=== PATIENT | male | born 1945 | race Caucasian/White ===

== ENCOUNTER → 2016-10-28 | Outpatient (CLI) | payer MEDICARE, MEDICAID ==
[~2016-10-28] MED LIST: ASP81TEC; CALC625T; CLIN-62; CLOT15CR4; CLOT15CR6; DCS100C; ECON30CR9; HYDR-34 PO; LANS30CA; LTRS15C; MAGN-47; MELO-195; OLAN20TA3; PEG250PW; SCR1T1; SIMV40TA2; SRTR100T; TOLTA4; TR1O15; TRAM50TA2
--- NOTE | 2016-10-28 16:20 | Diagnostic Imaging Report ---
EXAM: Two views of the right clavicle. INDICATION: Right clavicle area pain after injury. FINDINGS: No fracture or dislocation is seen. Degenerative changes at the acromioclavicular joint noted. IMPRESSION: No fracture is seen. Dictated by: Dictated on workstation # [id number]
--- NOTE | 2016-10-28 16:22 | Diagnostic Imaging Report ---
EXAM: 2 views of the right scapula. INDICATION: Right shoulder pain after falling out of bed. FINDINGS: No fracture, dislocation or radiopaque foreign body is a identified. IMPRESSION: Unremarkable exam. Evaluation of the scapula by radiographs can be somewhat limited. If there is high index of suspicion, evaluation with CT scan is recommended. Dictated by: Dictated on workstation # [id number]
--- NOTE | 2016-10-28 18:50 | Diagnostic Imaging Report ---
EXAMINATION: Three views of the right shoulder. INDICATION: Right shoulder pain after injury. FINDINGS: There is near wdva-is-puia appearance between the humerus and the undersurface of the acromion suggestive of high-grade chronic rotator cuff tear with superior subluxation of the humeral head relative to the glenoid. There is also mild degenerative changes seen at the glenohumeral and the acromioclavicular joints. No fracture or dislocation noted. IMPRESSION: Degenerative changes and evidence of chronic full-thickness tear of the rotator cuff. Dictated by: Dictated on workstation # [id number]
--- NOTE | 2016-10-28 19:16 | Diagnostic Imaging Report ---
EXAMINATION: Two views of the right humerus. INDICATION: Right arm pain after fall. FINDINGS: No fracture is seen. The proximal and distal joints appear grossly unremarkable with degenerative changes seen at the right shoulder. IMPRESSION: No acute process. Dictated by: Dictated on workstation # [id number]
== END ==
LOC: RAD 09:49
PROVIDERS: ATTEND Family Medicine
DX: M19.011 Primary osteoarthritis, right shoulder (principal); S59.911A Unspecified injury of right forearm, initial encounter; S29.9XXA Unspecified injury of thorax, initial encounter; M75.101 Unspecified rotator cuff tear or rupture of right shoulder, not specified as traumatic; W19.XXXA Unspecified fall, initial encounter; Y99.8 Other external cause status
CPT/HCPCS: 73000; 73010; 73030; 73060

== ENCOUNTER 2017-07-05 13:49 | Inpatient (IN) | payer MEDICARE, MEDICAID ==
[2017-07-05] VITALS (10 sets, daily range): BP systolic 93–135; BP diastolic 58–94
[~2017-07-05] VITALS: Ht 175.3 cm; Wt 81.6 kg
[2017-07-05] MEDS ORDERED: ONDANSETRON 4 MG/2 ML (SDV) Z0FRAN IVP PRN (14:00)
[2017-07-05] MEDS ORDERED: fentaNYL INJECTION 100 MCG/2 ML AMP IVP PRN (14:00)
[2017-07-05] MEDS ORDERED: ALPRAZolam 0.25 MG (XANAX) TAB PO PRN (14:00)
[2017-07-05] MEDS ORDERED: PIPERACILLIN SODIUM/TAZOBACTAM 4.5 GM in NS (IVPB) 100 ML IV SCH (14:00)
[2017-07-05] MEDS ORDERED: ACETAMINOPHEN 500 MG TAB (TYLENOL) PO PRN (14:00)
[2017-07-05] MEDS ORDERED: PIPERACILLIN/TAZO 4.5 GM VIAL (ZOSYN) IV ONE (16:41)
[2017-07-05] MEDS ORDERED: NS (IVPB) 100 ML ONE (16:43)
[2017-07-05] MEDS: NS IV 1000 ML 1,000 ML IV SCH (17:06)
[2017-07-05] MEDS ORDERED: RT-ALBUTEROL/IPRATROPIUM 3 ML (DUONEB) VIAL INH PRN (17:15)
[2017-07-05] MEDS ORDERED: CATHETER FLUSH 10 ML SYR IV PRN (17:45)
[2017-07-05] MEDS: PIPERACILLIN SODIUM/TAZOBACTAM 4.5 GM in NS (IVPB) 100 ML IV SCH (21:22)
--- NOTE | 2017-07-05 22:15 | CONSULTATION REPORT ---
DATE OF SERVICE: ADMITTING PHYSICIAN: Dr. London. ATTENDING PRIMARY CARE PHYSICIAN: Dr. Dottie Ascencio. HISTORY OF PRESENT ILLNESS: The patient is a 72-year-old male with a history of mild developmental mental delay. He is currently a resident of [facility]. He was brought to [facility] Emergency Department due to abdominal distention and pain. He was found to have an elevated white count as well as a hemoglobin and hematocrit most likely secondary to significant dehydration. He also had elevated BUN of 30 and creatinine of 2.55 consistent with dehydration as well and a lactic acid of 22.1. He reports abdominal distention as well as nausea and vomiting, however, since being admitted. He has a history of small-bowel obstruction and underwent exploratory laparotomy in 1999. Again since being admitted and started on IV fluids, he has had a bowel movement and passing of flatus with a decrease of abdominal distention. CT scan was reviewed from the previous institution, which did show dilated loops of small bowel consistent with; however, there was stool and gas within the colon consistent with more of a partial small-bowel obstruction. PAST MEDICAL HISTORY: CHF, history of small-bowel obstruction and ileus, hypercholesterolemia, mild developmental delay. PAST SURGICAL HISTORY: Exploratory laparotomy in 1999, repair of the left hallux deformity. ALLERGIES: No known drug allergies. MEDICATIONS: Aspirin 81 mg daily, lorazepam 0.5 mg daily, valproic acid 1250 mg daily, tamsulosin 0.4 mg daily, simvastatin 20 mg daily, olanzapine 20 mg daily, Meloxicam 7.5 mg b.i.d. SOCIAL HISTORY: Positive smoke 15 pack years, 3 beers daily. FAMILY HISTORY: Noncontributory. REVIEW OF SYSTEMS: Well-nourished male, currently in no acute distress. He is not experiencing any shortness of breath or difficulty breathing. No chest pain, palpitations, diaphoresis. No nausea, vomiting; however, came in with abdominal distention and since being placed on IV fluids and NG tube decompression, has had significantly less abdominal distention as well as bowel movements and passing of flatus. No red blood per rectum, no dark tarry stools. No fever, chills, no recent inadvertent weight loss. All other review of systems negative. PHYSICAL EXAMINATION: CHEST: Clear. Good breath sounds bilaterally. HEART: Regular, no murmurs. EXTREMITIES: No lower extremity edema. Negative Homans sign. HEENT: No scleral icterus. NECK: No cervical lymphadenopathy. ABDOMEN: Soft, nontender, nondistended. There are no hernias palpable. SKIN: Warm, dry. ASSESSMENT AND PLAN: A 72-year-old male with partial small-bowel obstruction as well as severe dehydration and renal insufficiency secondary to his dehydration. He is currently on fluid hydration as well as NG tube decompression. He has had a bowel function since incorporation of therapy and we will continue with conservative management and if he continues to have bowel function, we will remove the NG tube and start a clear liquid diet and advance as tolerated. Job ID: [id number] DocumentID: [id number] Dictated Date: 07/05/2017 21:49:17 Program Project Manager Date: 07/05/2017 22:15:00 Dictated By: SHAWNA NICHOLE MD
[2017-07-06] VITALS (16 sets, daily range): BP systolic 112–162; BP diastolic 64–95
[2017-07-06] MEDS: NS IV 1000 ML 1,000 ML IV SCH ×5 (00:23→21:19)
[2017-07-06 04:36] LABS: BASOPHILS % (AUTO) 0 % (0-10); EOSINOPHILS % (AUTO) 0 % (0-10); HEMATOCRIT 44 % (40-54); HEMOGLOBIN 15.4 G/DL (13.3-17.7); LYMPHOCYTES % (AUTO) 16 % (12-44); MEAN CORPUSCULAR HEMOGLOBIN 30 PG (25-34); MEAN CORPUSCULAR HGB CONC 35 G/DL (32-36); MEAN CORPUSCULAR VOLUME 88 FL (80-99); MEAN PLATELET VOLUME 11.9 FL (7.4-10.4); MONOCYTES # (AUTO) 1.1 X 10^3 (0.0-1.0); NEUTROPHILS % (AUTO) 66 % (42-75); PLATELET COUNT 156 10^3/uL (130-400); RED BLOOD COUNT 5.06 10^6/uL (4.35-5.85); RED CELL DISTRIBUTION WIDTH 14.6 % (10.0-14.5); WHITE BLOOD COUNT 6.1 10^3/uL (4.3-11.0)
[2017-07-06 04:37] LABS: MONOCYTES % (AUTO) 17 % (0-12)
[2017-07-06 05:01] LABS: ALANINE AMINOTRANSFERASE 22 U/L (0-55); ALKALINE PHOSPHATASE 42 U/L (40-136); BILIRUBIN,TOTAL 0.7 MG/DL (0.1-1.0); BUN/CREATININE RATIO 35; CALCIUM 8.4 MG/DL (8.5-10.1); CARBON DIOXIDE 27 MMOL/L (21-32); CHLORIDE 100 MMOL/L (98-107); CREATININE SERUM 0.94 MG/DL (0.60-1.30); GFR ESTIMATED > 60; GLUCOSE 87 MG/DL (70-105); MAGNESIUM 2.4 MG/DL (1.8-2.4); PHOSPHORUS 3.4 MG/DL (2.3-4.7); SODIUM 137 MMOL/L (135-145); TOTAL PROTEIN 6.4 GM/DL (6.4-8.2)
[2017-07-06] MEDS: PIPERACILLIN SODIUM/TAZOBACTAM 4.5 GM in NS (IVPB) 100 ML IV SCH ×3 (05:03→21:22)
[2017-07-06] MEDS ORDERED: MAGNESIUM 1 GM/100 ML IVPB 100 ML IV SCH ×2 (06:00)
[2017-07-06] MEDS ORDERED: POTASSIUM CL 10MEQ/50ML IVPB 50 ML IV SCH ×2 (06:00)
[2017-07-06] MEDS ORDERED: KCL 20 MEQ TAB (K-DUR) PO SCH ×2 (06:00)
--- NOTE | 2017-07-06 09:03 | Diagnostic Imaging Report ---
INDICATION: Pain COMPARISON: 10/24/2011 The heart size is stable and within normal limits. There is no effusion or pneumothorax. No free air beneath the diaphragms. No vascular congestion. IMPRESSION: No acute appearing abnormality. Dictated by: Dictated on workstation # [id number]
--- NOTE | 2017-07-06 11:04 | History & Physical-Hospitalist ---
History of Present Illness HPI/Chief Complaint CC: SBO with ARF HPI: This is a 72-year-old white male clinic patient of Dr. Ascencio who has a history of mental retardation who presents as a transfer to higher level of care due to acute renal failure with small bowel obstruction. Patient was assessed in the [facility] ER found to have acute renal failure of creatinine 2.5 and hypotension of systolic of 80. He was placed on aggressive IV fluids dose with vancomycin and reviewed prior records revealing a normal renal function in the past. Dr. Amin was consulted he placed NG tube and his output has diminished from 600 last night and now 100. Overall he feels much better but it's difficult to ascertain due to chronic mental retardation and cognitive deficit. Source: RN/MD Exam Limitations: clinical condition (MR) Date Seen 07/06/17 Time Seen by Provider: 10:30 Attending Physician Emperatriz London Rachel L MD Referring Physician Date of Admission Jul 05, 2017 at 16:25 Home Medications & Allergies Home Medications Reviewed patient Home Medication Reconciliation performed by pharmacy medication reconciliations it telecom technician and/or nursing. Patients Allergies have been reviewed. Allergies Allergies Coded Allergies No Known Drug Allergies (Verified06/25/09) Uncoded Allergies [id number] (CHOCOLATE FLAVOR) ( Allergy, Mild, 09/03/08) Past Fejfrxj-Yfsvvy-Wythnq Hx Past Med/Social Hx: Reviewed Nursing Past Med/Soc Hx, Reviewed and Corrections made Patient Social History Marrital Status: single Smoking Status: Current Everyday Smoker Type Used: Cigarettes Recent Foreign Travel: No Contact w/other who traveled: No Recent Hopitalizations: Yes ([facility] ONE MONTH AGO) Recent Infectious Disease Expo: No Past Medical History Neurological: Developmental Disorder Reproductive: No Gastrointestinal: Obstructive Bowel, Chronic Constipation History of Blood Disorders: No Review of Systems ROS-Unable to Obtain: unable to ascertain due to MR Constitutional: see HPI Physical Exam Physical Exam Vital Signs Vital Signs - First Documented 07/05/17 15:32 Temp 99.0 Pulse 94 Resp 18 B/P (MAP) 106/92 (97) Pulse Ox 96 O2 Delivery Nasal Cannula O2 Flow Rate 3.00 Capillary Refill : General Appearance: No Apparent Distress, WD/WN, Chronically ill, Obese Eyes: Bilateral Eye Normal Inspection, Bilateral Eye PERRL HEENT: PERRL/EOMI, Normal ENT Inspection, Pharynx Normal Neck: Full Range of Motion, Normal Inspection, Non Tender, Supple, Carotid Bruit Respiratory: Chest Non Tender, Lungs Clear, Normal Breath Sounds, No Accessory Muscle Use, No Respiratory Distress Cardiovascular: Regular Rate, Rhythm, No Edema, No Gallop, No JVD, No Murmur, Normal Peripheral Pulses Gastrointestinal: Soft, Other (NGT in place) Back: Normal Inspection, No CVA Tenderness, No Vertebral Tenderness Extremity: Normal Capillary Refill, Normal Inspection, Normal Range of Motion, Non Tender, No Calf Tenderness, No Pedal Edema Neurologic/Psychiatric: Alert, No Motor/Sensory Deficits, Normal Mood/Affect, Other (MR) Skin: Normal Color, Warm/Dry Lymphatic: No Adenopathy Results Results/Procedures Labs Laboratory Tests 07/06/17 04:05 Patient resulted labs reviewed. Assessment/Plan Admission Diagnosis Assessment: Small bowel obstruction acute Acute renal failure creatinine 2.5 now normal after IV fluid resuscitation Baseline mental retardation Leukocytosis of 11,000 in ER Plan: Monitor closely Pain control NGT per Dr Amin Transfer to 4th Admission Status: Inpatient Order (span 2 midnights) Reason for Inpatient Admission: SBO Clinical Quality Measures DVT/VTE Risk/Contraindication: Risk Factor Score Per Nursin RFS Level Per Nursing on Admit: 3=High EMPERATRIZ LONDON DO Jul 06, 2017 11:04
[2017-07-06] MEDS ORDERED: CALC625T9 PO (11:45)
[2017-07-06] MEDS ORDERED: DIVA250T PO (11:45)
[2017-07-06] MEDS ORDERED: POLY17PO6 PO (11:45)
[2017-07-06] MEDS ORDERED: TOLT4CAP13 PO (11:45)
[2017-07-06] MEDS ORDERED: LORA-404 PO (11:45)
[2017-07-06] MEDS ORDERED: RT-ALBUINH IH (11:45)
[2017-07-06] MEDS ORDERED: ONDA8TAB6 PO (11:45)
[2017-07-06] MEDS ORDERED: MELO7.5T46 PO (11:45)
[2017-07-06] MEDS ORDERED: GUAI5SYR PO (11:45)
[2017-07-06] MEDS ORDERED: CALC300T4 PO (11:45)
[2017-07-06] MEDS ORDERED: MAGN400O7 PO (11:45)
[2017-07-06] MEDS ORDERED: NPB.9O TP (11:45)
[2017-07-06] MEDS ORDERED: BENZ-13 PO (11:45)
[2017-07-06] MEDS ORDERED: TAMS0.4C2 PO (11:45)
[2017-07-06] MEDS ORDERED: LORA10TA7 PO (11:45)
[2017-07-06] MEDS ORDERED: DIVA-21 PO (11:45)
[2017-07-06] MEDS ORDERED: OMEP20CA12 PO (11:45)
[2017-07-06] MEDS ORDERED: CARB15DR87 OU (11:45)
[2017-07-06] MEDS ORDERED: HYDR28.3 TP (11:45)
[2017-07-06] MEDS ORDERED: DOCU100C37 PO (11:45)
[2017-07-06] MEDS ORDERED: ACET325T38 PO (11:45)
[2017-07-06] MEDS ORDERED: LOPE2TAB64 PO (11:45)
[2017-07-06] MEDS ORDERED: TETR15DR74 OU (11:45)
[2017-07-06] MEDS ORDERED: FLUT16SP22 NS (11:45)
[2017-07-06] MEDS ORDERED: OLAN20TA16 PO (11:45)
[2017-07-06] MEDS ORDERED: ASPI-983 PO (11:45)
[2017-07-06] MEDS ORDERED: SIMV20TA3 PO (11:45)
[2017-07-06] MEDS ORDERED: TIZA4TAB3 PO (11:45)
[2017-07-06] MEDS ORDERED: MENT5LOZ3 MM (11:45)
[2017-07-06] MEDS ORDERED: DIPH25CA79 PO (11:45)
[2017-07-06] MEDS: ENOXAPARIN 40 MG/0.4 ML (LOVENOX) SYR SC SCH (11:46)
--- NOTE | 2017-07-06 17:17 | Progress Note (SOAP) ---
Subjective Date Seen by Provider: Jul 06, 2017 Time Seen by Provider: 17:00 Subjective/Events-last exam doing much better. has had multiple BM's and flatus with decreased abdominal distention. renal failure improved with IV hydration. no abd pain. Objective Exam Vital Signs Date Time Temp Pulse Resp B/P (MAP) Pulse Ox O2 Delivery O2 Flow Rate FiO2 07/06/17 15:59 98.2 74 16 144/87 (106) 93 07/06/17 13:30 99.3 78 22 162/85 (110) 93 Room Air 07/06/17 12:20 97 Room Air 07/06/17 12:20 98.6 74 20 122/84 (97) 92 Room Air 07/06/17 11:00 79 22 116/92 (100) 91 Room Air 07/06/17 10:00 71 22 125/66 (85) 93 Room Air 07/06/17 09:00 76 19 124/90 (101) 94 Room Air 07/06/17 08:00 97 Room Air 07/06/17 08:00 79 15 126/77 (93) 93 Room Air 07/06/17 07:39 98.5 07/06/17 07:00 Room Air 07/06/17 07:00 80 07/06/17 07:00 18 118/73 (88) Room Air 07/06/17 06:53 Nasal Cannula 3.00 07/06/17 06:00 85 21 117/64 (81) 91 Nasal Cannula 3.00 07/06/17 05:00 82 24 117/81 (93) 92 Nasal Cannula 3.00 07/06/17 04:00 99 Nasal Cannula 3.00 07/06/17 04:00 84 18 112/95 (101) 90 Nasal Cannula 3.00 07/06/17 04:00 98.2 07/06/17 03:00 83 25 120/84 (96) 98 Nasal Cannula 3.00 07/06/17 02:00 79 25 123/77 (92) 97 Nasal Cannula 3.00 07/06/17 01:00 90 24 131/78 (95) 97 Nasal Cannula 3.00 07/06/17 01:00 82 07/06/17 00:00 99 Nasal Cannula 3.00 07/06/17 00:00 97.6 07/06/17 00:00 88 14 113/77 (89) 94 Nasal Cannula 3.00 07/05/17 23:00 96 17 127/58 (81) 94 Nasal Cannula 3.00 07/05/17 22:00 94 17 94/76 (82) 94 Nasal Cannula 3.00 07/05/17 21:00 95 120/75 (90) 95 Nasal Cannula 3.00 07/05/17 20:17 Nasal Cannula 3.00 07/05/17 20:00 99 Nasal Cannula 3.00 07/05/17 20:00 90 135/89 (104) 95 Nasal Cannula 3.00 07/05/17 19:41 99.3 07/05/17 19:00 93 119/94 (102) 94 Nasal Cannula 3.00 07/05/17 19:00 93 07/05/17 18:00 99 15 93/59 (70) 99 Nasal Cannula 3.00 I & O 07/06/17 07:00 Intake Total 0 ml Output Total 700 ml Balance -700 ml Capillary Refill : General Appearance: No Apparent Distress HEENT: PERRL/EOMI Neck: Full Range of Motion Respiratory: Chest Non Tender, Lungs Clear Cardiovascular: Regular Rate, Rhythm Gastrointestinal: normal bowel sounds, non tender, soft Extremity: Normal Capillary Refill Neurologic/Psychiatric: Alert, Oriented x3 Skin: Normal Color Lymphatic: No Adenopathy Results Lab Laboratory Tests 07/06/17 04:05: White Blood Count 6.1, Red Blood Count 5.06, Hemoglobin 15.4, Hematocrit 44, Mean Corpuscular Volume 88, Mean Corpuscular Hemoglobin 30, Mean Corpuscular Hemoglobin Concent 35, Red Cell Distribution Width 14.6H, Platelet Count 156, Mean Platelet Volume 11.9H, Neutrophils (%) (Auto) 66, Lymphocytes (%) (Auto) 16 , Monocytes (%) (Auto) 17H, Eosinophils (%) (Auto) 0, Basophils (%) (Auto) 0, Neutrophils # (Auto) 4.0, Lymphocytes # (Auto) 1.0, Monocytes # (Auto) 1.1H, Eosinophils # (Auto) 0.0, Basophils # (Auto) 0.0, Sodium Level 137, Potassium Level 4.0, Chloride Level 100, Carbon Dioxide Level 27, Anion Gap 10, Blood Urea Nitrogen 33H, Creatinine 0.94, Estimat Glomerular Filtration Rate > 60, BUN /Creatinine Ratio 35, Glucose Level 87, Calcium Level 8.4L, Phosphorus Level 3.4 , Magnesium Level 2.4, Total Bilirubin 0.7, Aspartate Amino Transf (AST/SGOT) 20 , Alanine Aminotransferase (ALT/SGPT) 22, Alkaline Phosphatase 42, Total Protein 6.4, Albumin 4.0 Assessment/Plan Assessment/Plan Assess & Plan/Chief Complaint PSBO with dehydration and acute renal failure. improved with NG decompression, bowel rest and IV fluids. NG removed and will start clears and advance as tolerated. Clinical Quality Measures DVT/VTE Risk/Contraindication: Risk Factor Score Per Nursin RFS Level Per Nursing on Admit: 3=High SHAWNA NICHOLE MD Jul 06, 2017 17:17
[2017-07-07] VITALS: BP 127/74
[2017-07-07] MEDS: PIPERACILLIN SODIUM/TAZOBACTAM 4.5 GM in NS (IVPB) 100 ML IV SCH ×2 (04:52→12:31)
[2017-07-07 08:00] VITALS: BP 134/83
[2017-07-07] MEDS ORDERED: MILK OF MAGNESIA 400 MG/5 ML 30 ML UDC PO PRN (10:15)
[2017-07-07] MEDS ORDERED: MENTHOL 5 MG MM PRN (10:15)
[2017-07-07] MEDS ORDERED: ACETAMINOPHEN 325 MG TABLET PO PRN (10:15)
[2017-07-07] MEDS ORDERED: SENN8.6T17 PO (10:17)
--- NOTE | 2017-07-07 10:17 | Discharge Summary-Hospitalist ---
Diagnosis/Chief Complaint Date of Admission Jul 05, 2017 at 16:25 Date of Discharge Discharge Date: Jul 07, 2017 Admission Diagnosis Assessment: Small bowel obstruction acute Acute renal failure creatinine 2.5 now normal after IV fluid resuscitation Baseline mental retardation Leukocytosis of 11,000 in ER Plan: Monitor closely Pain control NGT per Dr Amin Transfer to 4th Discharge Diagnosis (1) SBO (small bowel obstruction) Status: Resolved (2) Mental retardation Status: Chronic (3) ARF (acute renal failure) Status: Acute (4) Hyponatremia Status: Resolved (5) Dehydration Status: Resolved Discharge Summary Discharge Physical Exam Allergies: Coded Allergies: No Known Drug Allergies (Verified , 06/25/09) Uncoded Allergies: [id number] (CHOCOLATE FLAVOR) (Allergy, Mild, 09/03/08) Vitals & I&Os Vital Signs Date Time Temp Pulse Resp B/P (MAP) Pulse Ox O2 Delivery O2 Flow Rate FiO2 07/07/17 08:54 93 Room Air 07/07/17 08:00 96.9 66 20 134/83 (100) 07/06/17 06:53 3.00 General Appearance: Alert, Cooperative Respiratory: Clear to Auscultation, Normal Air Movement Abdominal: Normal Bowel Sounds, Soft Hospital Course Hospital course: Patient had a brief hospital course since he was transferred from [facility] for higher level care due to acute renal failure of 2.55 creatinine and small bowel obstruction. He had NG tube placed by Dr. Amin IV fluid resuscitation resolve the acute renal failure and small bowel obstruction resolved after NG tube was discontinued and began having loose bowel movements. He has history of recurrent small bowel obstructions history of chronic constipation so in addition to the MiraLAX and Colace he has on his home medication at discharge we will add senna stimulant laxative twice a day in hopes of resolving this recurrent issue. Overall prognosis is very poor considering mental retardation and advanced age and comorbidities. I had initially started antibiotics in case of bowel infection and those were discontinued at time of discharge. Labs (last 24 hrs) Microbiology 07/05/17 MRSA Screen - Preliminary, Resulted MRSA not isolated Patient resulted labs reviewed. Discussion & Recommendations Discharge Planning: <30 minutes discharge planning Discharge Home Medications: Active Scripts Active Senna Laxative (Sennosides) 8.6 Mg Tablet 8.6 Mg PO BID Reported Zofran (Ondansetron HCl) 8 Mg Tablet 8 Mg PO Q6H PRN Visine (Tetrahydrozoline HCl) 15 Ml Drops 2 Drops OU QID PRN Ventolin Hfa (Albuterol Sulfate) 1 Puff Puff 2 Puff IH Q6H PRN 1 PUFF = 90 MCG Tylenol (Acetaminophen) 325 Mg Tablet 650 Mg PO Q6H PRN TAKES 2 (325MG) TABLETS Tums (Calcium Carbonate) 300 Mg Tab.chew 1,000 Mg PO Q4H PRN TAKES 2 (500MG) TABLETS Tizanidine HCl 4 Mg Tablet 4 Mg PO Q8H PRN Tessalon Perle (Benzonatate) 100 Mg Capsule 100 Mg PO Q8H PRN Triple Antibiotic Ointment (Neomycin/Polymyxin/Bacitracin) 0.9 Gm Oint TP Q12H PRN Anti-Diarrhea (Loperamide HCl) 2 Mg Tablet PO UD PRN Guaifenesin Dm Syrup (Guaifenesin/Dextromethorphan) 5 Ml Syrup 10 Ml PO Q4H PRN Milk of Magnesia (Magnesium Hydroxide) 400 Mg/5 Ml Oral.susp 30 Ml PO Q12H PRN Hydrocortisone 28.35 Gm Cream..g. TP TID PRN 1% Fluticasone Propionate 16 Gm [place].susp 1 [place] NS BID PRN Debrox (Carbamide Peroxide) 15 Ml Drops 5 Drops OU Q8H PRN Cough Drops (Menthol) 5 Mg Lozenge 5 Mg MM Q1H PRN NOT TO EXCEED 8 DROPS IN 24 HOURS Loratadine 10 Mg Tablet 10 Mg PO DAILY PRN Benadryl (Diphenhydramine HCl) 25 Mg Capsule 25-50 Mg PO Q6H PRN Ativan (Lorazepam) 0.5 Mg Tablet 0.5 Mg PO DAILY PRN Meloxicam 7.5 Mg Tablet 7.5 Mg PO BID Olanzapine 20 Mg Tablet 20 Mg PO HS Simvastatin 20 Mg Tablet 20 Mg PO HS Omeprazole 20 Mg Capsule.dr 20 Mg PO DAILY Miralax (Polyethylene Glycol 3350) 17 Gm Powd.pack 17 Gm PO 1700 Tamsulosin HCl 0.4 Mg Cap.er.24h 0.4 Mg PO DAILY Fiber-Lax (Calcium Polycarbophil) 625 Mg Tablet 625 Mg PO HS Tolterodine Tartrate ER (Tolterodine Tartrate) 4 Mg Cap.er.24h 4 Mg PO DAILY Depakote ER (Divalproex Sodium) 500 Mg Tab.er.24h 1,000 Mg PO HS TAKES 2 (500MG) TABLETS Depakote ER (Divalproex Sodium) 250 Mg Tab.er.24h 250 Mg PO DAILY Aspirin EC (Aspirin) 81 Mg Tablet.dr 81 Mg PO HS Docusate Sodium 100 Mg Capsule 100 Mg PO HS Instructions to patient/family Please see electronic discharge instructions given to patient. Clinical Quality Measures DVT/VTE Risk/Contraindication: Risk Factor Score Per Nursin RFS Level Per Nursing on Admit: 3=High Problem Qualifiers (1) ARF (acute renal failure): Acute renal failure type: unspecified Qualified Codes: N17.9 - Acute kidney failure, unspecified SHELIA CHARLES DO Jul 07, 2017 10:17
--- NOTE | 2017-07-07 11:28 | Progress Note (SOAP) ---
Subjective Date Seen by Provider: Jul 07, 2017 Time Seen by Provider: 11:00 Subjective/Events-last exam doing much better. having BM's and tolerating diet. no abdominal pain. Objective Exam Vital Signs Date Time Temp Pulse Resp B/P (MAP) Pulse Ox O2 Delivery O2 Flow Rate FiO2 07/07/17 08:54 93 Room Air 07/07/17 08:00 96.9 66 20 134/83 (100) 94 Room Air 07/07/17 00:00 98.2 65 20 127/74 (91) 92 Room Air 07/06/17 20:01 98.0 75 16 154/84 (107) 92 07/06/17 19:57 91 Room Air 07/06/17 15:59 98.2 74 16 144/87 (106) 93 07/06/17 13:30 99.3 78 22 162/85 (110) 93 Room Air 07/06/17 12:20 97 Room Air 07/06/17 12:20 98.6 74 20 122/84 (97) 92 Room Air I & O 07/07/17 07:00 Intake Total 4590 ml Output Total 1525 ml Balance 3065 ml Capillary Refill : General Appearance: No Apparent Distress HEENT: PERRL/EOMI Neck: Full Range of Motion Respiratory: Chest Non Tender, Lungs Clear, Normal Breath Sounds Cardiovascular: Regular Rate, Rhythm Gastrointestinal: normal bowel sounds, non tender, soft Extremity: Normal Capillary Refill Neurologic/Psychiatric: Alert, Oriented x3 Skin: Normal Color Lymphatic: No Adenopathy Results Lab Microbiology 07/05/17 MRSA Screen - Preliminary, Resulted MRSA not isolated Assessment/Plan Assessment/Plan Assess & Plan/Chief Complaint PSBO with dehydration and acute renal failure. improved decompression, bowel rest and IV fluids. advance diet as tolerated. ok for home when ok with PMD Clinical Quality Measures DVT/VTE Risk/Contraindication: Risk Factor Score Per Nursin RFS Level Per Nursing on Admit: 3=High SHAWNA NICHOLE MD Jul 07, 2017 11:28 am
[2017-07-07] MEDS ORDERED: CARBAM PEROX/GLYC/PROP 15 ML DROPS (DEBROX) EACH EAR PRN (11:30)
[2017-07-07] MEDS ORDERED: diphenhydrAMINE 25 MG TAB (BENADRYL) PO PRN (11:30)
[2017-07-07] MEDS ORDERED: LORATADINE (CLARITIN) 10 MG TAB PO PRN (11:30)
[2017-07-07] MEDS ORDERED: RT-ALBUTEROL SULF 2.5 MG/3 ML PRE-MIX VIAL IH PRN (11:30)
[2017-07-07] MEDS ORDERED: CALCIUM CARBONATE 500 MG (TUMS) TAB.CHEW PO PRN (11:30)
[2017-07-07] MEDS ORDERED: guaiFENesin/DM (ROBITUSSIN DM) 10 ML UDC PO PRN (11:30)
[2017-07-07] MEDS ORDERED: BENZONATATE 100 MG (TESSALON) CAPSULE PO PRN (11:30)
[2017-07-07] MEDS ORDERED: ONDANSETRON 8 MG (ZOFRAN) ORAL DISSOLVE TAB PO PRN (11:45)
[2017-07-07] MEDS ORDERED: LORazepam 0.5 MG (ATIVAN) TABLET PO PRN (11:45)
[2017-07-07] MEDS ORDERED: TETRAHYDROZOLINE (VISINE) 0.05% 15 ML BTL OU PRN (11:45)
--- NOTE | 2017-07-07 11:45 | Physical Therapy Progress Note ---
Therapy Progress Note Patient is up with nursing ambulating independently. Dr. London notified. No skilled PT intervention indicated. NICHOL GOODWIN PT Jul 07, 2017 11:45
[2017-07-07] MEDS: ENOXAPARIN 40 MG/0.4 ML (LOVENOX) SYR SC SCH (12:32)
[2017-07-07 14:41] VITALS: BP 134/83
[2017-07-07] MEDS ORDERED: POLYETHYLENE GLYCOL 17 GM (MIRALAX) PACK PO SCH (17:00)
[2017-07-07] MEDS ORDERED: CAL. POLYCARBOPHIL 625 MG (FIBERCON) TAB PO SCH (21:00)
[2017-07-07] MEDS ORDERED: ASPIRIN E.C. 81 MG (ECOTRIN) TAB PO SCH (21:00)
[2017-07-07] MEDS ORDERED: DIVALPROEX EXT RELEASE 500 MG (DEPAKOTE ER) TAB PO SCH (21:00)
[2017-07-07] MEDS ORDERED: DOCUSATE SODIUM 100 MG (COLACE) CAP PO SCH (21:00)
[2017-07-07] MEDS ORDERED: MELOXICAM 7.5 MG (MOBIC) TABLET PO SCH (21:00)
[2017-07-07] MEDS ORDERED: SIMvastatin 20 MG (ZOCOR) TAB PO SCH (21:00)
[2017-07-07] MEDS ORDERED: OLANZapine 5 MG (ZyPREXA) TAB PO SCH (21:00)
[2017-07-08] MEDS ORDERED: PANTOPRAZOLE 20 MG TABLET (PROTONIX) PO SCH (07:00)
[2017-07-08] MEDS ORDERED: DIVALPROEX EXT RELEASE 250 MG (DEPAKOTE ER) TAB PO SCH (09:00)
[2017-07-08] MEDS ORDERED: TAMSULOSIN 0.4 MG (FLOMAX) CAP PO SCH (09:00)
[2017-07-08] MEDS ORDERED: TOLTERODINE LA 4 MG (DETROL) CAP PO SCH (09:00)
[2017-07-08] MEDS ORDERED: FLUTICASONE NASAL SPRAY (FLONASE) 16 GM BTL NS PRN (09:00)
== END 2017-07-07 14:46 | disposition home or self-care (01) | DRG 389 ==
LOC: ICU 16:25 → 4TH 07-06 13:20
PROVIDERS: ADMIT Internal Medicine; ATTEND Internal Medicine
PROC: 0D9670Z Drainage of Stomach with Drainage Device, Via Natural or Artificial Opening (ICD-10-PCS; principal; 2017-07-05)
DX: K56.690 Other partial intestinal obstruction (principal); N17.9 Acute kidney failure, unspecified; E86.0 Dehydration; E87.1 Hypo-osmolality and hyponatremia; F70 Mild intellectual disabilities; K59.09 Other constipation; F17.210 Nicotine dependence, cigarettes, uncomplicated; E66.9 Obesity, unspecified; E78.00 Pure hypercholesterolemia, unspecified; Z68.26 Body mass index [BMI] 26.0-26.9, adult; Z86.79 Personal history of other diseases of the circulatory system
CPT/HCPCS: 36415; 71045; 80053; 83735; 84100; 85025; 87081; 94760

== ENCOUNTER → 2019-10-09 | Outpatient (CLI) | payer MEDICARE, MEDICAID ==
[~2019-10-09] MED LIST changes: +ACET325T38 PO; +ASPI-983 PO; +BENZ100C18 PO; +CALC300T4 PO; +CALC625T9 PO; +CARB15DR87 OU; +CATHETER FLUSH 10 ML SYR IV PRN; +DIPH25CA79 PO; +DIVA-21 PO; +DIVA250T PO; +DOCU100C37 PO; +FLUT16SP22 NS; +GUAI5SYR PO; +HOLD METFORMIN - RECEIVED CONTRAST 20 ML VIAL IV SCH; +HYDR28.3 TP; +IOHEXOL 350 MG/ML 100 ML (OMNIPAQUE 350) VIAL IV ONE; +LOPE2TAB64 PO; +LORA-404 PO; +LORA10TA7 PO; +MAGN400O7 PO; +MELO7.5T46 PO; +MENT5LOZ3 MM; +NPB.9O TP; +OLAN20TA34 PO; +OMEP20CA18 PO; +ONDA8TAB6 PO; +POLY17PO6 PO; +RT-ALBUINH IH; +SENN8.6T17 PO; +SIMV20TA26 PO; +TAMS0.4C2 PO; +TETR15DR74 OU; +TIZA4TAB4 PO; +TOLT4CAP13 PO
[2019-10-09 12:45] LABS: GFR ESTIMATED > 60
[2019-10-09 12:46] LABS: BUN/CREATININE RATIO 35
--- NOTE | 2019-10-09 13:29 | Diagnostic Imaging Report ---
INDICATION: Right knee pain and swelling COMPARISON: None. FINDINGS: 3 views of the right knee joint demonstrate no acute fracture or dislocation. No focal osseous lesions are seen. There is moderate osteoarthritis consisting of significant patellar trochlear joint space narrowing with osteophyte formation. Probable intra-articular loose bodies are also noted superior to the lateral femoral condyle as well as within the posterior joint space medial to midline. No significant joint effusion is seen. The surrounding soft tissue structures are unremarkable. There are no radiopaque foreign bodies. IMPRESSION: 1. No acute fractures or dislocations of the right knee joint. 2. Osteoarthritis with probable large intra-articular loose bodies. Dictated by: Dictated on workstation # [id number]
--- NOTE | 2019-10-09 14:52 | Diagnostic Imaging Report ---
PROCEDURE: CT chest, abdomen, and pelvis with contrast. TECHNIQUE: Multiple contiguous axial images were obtained through the chest, abdomen, and pelvis after the administration of intravenous contrast. Auto Exposure Controls were utilized during the CT exam to meet ALARA standards for radiation dose reduction. INDICATION: CHF, weight loss, constipation, and urinary retention. COMPARISON: No prior studies are available for comparison. FINDINGS: CT CHEST: No axillary lymphadenopathy is detected. No mediastinal or hilar lymphadenopathy is detected. No pericardial or pleural fluid is identified. Parenchymal evaluation demonstrates a tiny subpleural nodule in the lateral aspect of the left upper lobe, image 17, 2 to 3 mm in size. No other pulmonary abnormality is detected. No infiltrates are seen. Bony structures are unremarkable. IMPRESSION: Essentially unremarkable CT of the chest apart from left upper lobe pulmonary micronodule. No thoracic lymphadenopathy is detected. CT ABDOMEN AND PELVIS: No discrete liver mass is identified. Gallbladder is unremarkable. There is no biliary ductal dilatation. Pancreas and spleen are unremarkable. No adrenal mass is detected. Kidneys are unremarkable. Aorta is calcified but nonaneurysmal. No central retroperitoneal or mesenteric lymphadenopathy is identified. A large amount of stool is noted throughout the colon. There are mildly prominent fluid-filled small bowel loops throughout the abdomen, nonspecific. No free fluid is seen. No fluid collection is identified. Partially filled urinary bladder does show some generalized wall thickening, nonspecific. Prostate is enlarged. No definite pelvic lymphadenopathy is seen. IMPRESSION: 1. Large stool volume, suggestive of constipation. 2. Mildly prominent and fluid-filled small bowel loops throughout the abdomen, nonspecific. This could be owing to nonspecific enteritis. 3. Mild bladder wall thickening, likely owing to incomplete distention versus cystitis. No other significant abnormality is detected. Dictated by: Dictated on workstation # [id number]
== END ==
LOC: RAD 11:55
PROVIDERS: ATTEND Family Medicine
DX: M17.11 Unilateral primary osteoarthritis, right knee (principal); R91.1 Solitary pulmonary nodule; N32.89 Other specified disorders of bladder; K59.00 Constipation, unspecified; R33.9 Retention of urine, unspecified; I50.9 Heart failure, unspecified; R63.4 Abnormal weight loss; E22.2 Syndrome of inappropriate secretion of antidiuretic hormone
CPT/HCPCS: 36415; 71260; 73562; 74177; 82565; 84520

== ENCOUNTER 2019-10-28 05:33 | Outpatient (RCR) | payer MEDICARE, MEDICAID ==
[~2019-10-28] VITALS: Ht 175 cm; Wt 58.8 kg
[~2019-10-28 05:33] MED LIST changes: +CALC625T76 PO; -CATHETER FLUSH 10 ML SYR IV PRN; +DIVA-76 PO; -HOLD METFORMIN - RECEIVED CONTRAST 20 ML VIAL IV SCH; -IOHEXOL 350 MG/ML 100 ML (OMNIPAQUE 350) VIAL IV ONE; +TMSL.4C PO
== END 2019-10-28 10:31 | disposition home or self-care (01) ==
LOC: PREOP 05:33
PROVIDERS: ATTEND Surgery
DX: Z01.812 Encounter for preprocedural laboratory examination (principal); Z20.828 Contact with and (suspected) exposure to other viral communicable diseases; R63.4 Abnormal weight loss
CPT/HCPCS: 87635

== ENCOUNTER 2019-10-30 10:30 | Day surgery (SDC) | payer MEDICARE, MEDICAID ==
[2019-10-30] VITALS (22 sets, daily range): BP systolic 97–149; BP diastolic 60–86
[~2019-10-30] VITALS: Ht 175 cm; Wt 58.8 kg
--- OUTSIDE RECORDS SUMMARY | 2019-10-30 10:39 | XMS REPORT | Continuity of Care Document ---
Demographics Preferred Language Unknown Marital Status Unknown Temple Affiliation Unknown Race Unknown Ethnic Group Unknown Author Organization Unknown Address Unknown Phone Unavailable Allergies Active Description Code Type Severity Reaction Onset Reported/Identified Relationship to Patient Clinical Status Yes [id number] (CHOCOLATE FLAVOR) [id number] (CHOCOLATE FLAVOR) Mild N/A 09/03/2008 Yes No Known Drug Allergies [id number] Drug Allergy Unknown N/A 06/25/2009 Medications There is no data. Problems Date Dx Coded Attending Type Code Diagnosis Diagnosed By 10/24/2011 Ot 564.00 UNS PEC CONSTIPATION 10/24/2011 Ot 789.00 ABD OMINAL PAIN, UNSPECIFIED SITE 10/31/2016 KAROLINA WATSON MD Ot M19.011 PRIMARY OSTEOARTHRITIS, RIGHT SHOULDER 10/31/2016 KAROLINA WATSON MD Ot M75.101 UNSP ROTATR-CUFF TEAR/RUPTR OF RIGHT ANTIONETTE 10/31/2016 KAROLINA WATSON MD Ot S29.9XXA UNSPECIFIED INJURY OF THORAX, INITIAL EN 10/31/2016 KAROLINA WATSON MD Ot S59.911A UNSPECIFIED INJURY OF RIGHT FOREARM, INI 10/31/2016 KAROLINA WATSON MD Ot W19.XXXA UNSPECIFIED FALL, INITIAL ENCOUNTER 10/31/2016 KAROLINA WATSON MD Ot Y99.8 OTHER EXTERNAL CAUSE STATUS 11/19/2016 KAROLINA WATSON MD Ot M19.011 PRIMARY OSTEOARTHRITIS, RIGHT SHOULDER 11/19/2016 KAROLINA WATSON MD Ot M75.101 UNSP ROTATR-CUFF TEAR/RUPTR OF RIGHT ANTIONETTE 11/19/2016 KAROLINA WATSON MD Ot S29.9XXA UNSPECIFIED INJURY OF THORAX, INITIAL EN 11/19/2016 KAROLINA WATSON MD Ot S59.911A UNSPECIFIED INJURY OF RIGHT FOREARM, INI 11/19/2016 KAROLINA WATSON MD Ot W19.XXXA UNSPECIFIED FALL, INITIAL ENCOUNTER 11/19/2016 KAROLINA WATSON MD Ot Y99.8 OTHER EXTERNAL CAUSE STATUS 12/02/2016 WATSON MD, KAROLINA L Ot M19.011 PRIMARY OSTEOARTHRITIS, RIGHT SHOULDER 12/02/2016 SHIRLEY DEVRIES, KAROLINA L Ot M75.101 UNSP ROTATR-CUFF TEAR/RUPTR OF RIGHT ANTIONETTE 12/02/2016 SHIRLEY DEVRIES, KAROLINA L Ot S29.9XXA UNSPECIFIED INJURY OF THORAX, INITIAL EN 12/02/2016 SHIRLEY DEVRIES, KAROLINA L Ot S59.911A UNSPECIFIED INJURY OF RIGHT FOREARM, INI 12/02/2016 SHIRLEY DEVRIES, KAROLINA L Ot W19.XXXA UNSPECIFIED FALL, INITIAL ENCOUNTER 12/02/2016 SHIRLEY DEVRIES, KAROLINA L Ot Y99.8 OTHER EXTERNAL CAUSE STATUS 07/05/2017 SHIRLEY DEVRIES, KAROLINA L Ot M19.011 PRIMARY OSTEOARTHRITIS, RIGHT SHOULDER 07/05/2017 SHIRLEY DEVRIES, KAROLINA L Ot M75.101 UNSP ROTATR-CUFF TEAR/RUPTR OF RIGHT ANTIONETTE 07/05/2017 SHIRLEY DEVRIES, KAROLINA L Ot S29.9XXA UNSPECIFIED INJURY OF THORAX, INITIAL EN 07/05/2017 SHIRLEY DEVRIES, KAROLINA L Ot S59.911A UNSPECIFIED INJURY OF RIGHT FOREARM, INI 07/05/2017 SHIRLEY DEVRIES, KAROLINA L Ot W19.XXXA UNSPECIFIED FALL, INITIAL ENCOUNTER 07/05/2017 SHIRLEY DEVRIES, KAROLINA L Ot Y99.8 OTHER EXTERNAL CAUSE STATUS 07/05/2017 SHIRLEY DEVRIES, KAROLINA L Ot M19.011 PRIMARY OSTEOARTHRITIS, RIGHT SHOULDER 07/05/2017 SHIRLEY DEVRIES, KAROLINA L Ot M75.101 UNSP ROTATR-CUFF TEAR/RUPTR OF RIGHT ANTIONETTE 07/05/2017 SHIRLEY DEVRIES, KAROLINA L Ot S29.9XXA UNSPECIFIED INJURY OF THORAX, INITIAL EN 07/05/2017 SHIRLEY DEVRIES, KAROLINA L Ot S59.911A UNSPECIFIED INJURY OF RIGHT FOREARM, INI 07/05/2017 SHIRLEY DEVRIES, KAROLINA L Ot W19.XXXA UNSPECIFIED FALL, INITIAL ENCOUNTER 07/05/2017 SHIRLEY DEVRIES, KAROLINA L Ot Y99.8 OTHER EXTERNAL CAUSE STATUS 07/05/2017 SHIRLEY DEVRIES, KAROLINA L Ot M19.011 PRIMARY OSTEOARTHRITIS, RIGHT SHOULDER 07/05/2017 SHIRLEY DEVRIES, KAROLINA L Ot M75.101 UNSP ROTATR-CUFF TEAR/RUPTR OF RIGHT ANTIONETTE 07/05/2017 SHIRLEY DEVRIES, KAROLINA L Ot S29.9XXA UNSPECIFIED INJURY OF THORAX, INITIAL EN 07/05/2017 SHIRLEY DEVRIES, KAROLINA L Ot S59.911A UNSPECIFIED INJURY OF RIGHT FOREARM, INI 07/05/2017 SHIRLEY DEVRIES, KAROLINA L Ot W19.XXXA UNSPECIFIED FALL, INITIAL ENCOUNTER 07/05/2017 SHIRLEY DEVRIES, KAROLINA L Ot Y99.8 OTHER EXTERNAL CAUSE STATUS 07/05/2017 SHIRLEY DEVRIES, KAROLINA L Ot M19.011 PRIMARY OSTEOARTHRITIS, RIGHT SHOULDER 07/05/2017 SHIRLEY DEVRIES, KAROLINA L Ot M75.101 UNSP ROTATR-CUFF TEAR/RUPTR OF RIGHT ANTIONETTE 07/05/2017 SHIRLEY DEVRIES, KAROLINA L Ot S29.9XXA UNSPECIFIED INJURY OF THORAX, INITIAL EN 07/05/2017 SHIRLEY DEVRIES, KAROLINA L Ot S59.911A UNSPECIFIED INJURY OF RIGHT FOREARM, INI 07/05/2017 KAROLINA WATSON MD L Ot W19.XXXA UNSPECIFIED FALL, INITIAL ENCOUNTER 07/05/2017 SHIRLEY DEVRIES, KAROLINA L Ot Y99.8 OTHER EXTERNAL CAUSE STATUS 07/05/2017 SHIRLEY DEVRIES, KAROLINA L Ot M19.011 PRIMARY OSTEOARTHRITIS, RIGHT SHOULDER 07/05/2017 SHIRLEY DEVRIES, KAROLINA L Ot M75.101 UNSP ROTATR-CUFF TEAR/RUPTR OF RIGHT ANTIONETTE 07/05/2017 SHIRLEY DEVRIES, KAROLINA L Ot S29.9XXA UNSPECIFIED INJURY OF THORAX, INITIAL EN 07/05/2017 KAROLINA WATSON MD L Ot S59.911A UNSPECIFIED INJURY OF RIGHT FOREARM, INI 07/05/2017 SHIRLEY DEVRIES, KAROLINA L Ot W19.XXXA UNSPECIFIED FALL, INITIAL ENCOUNTER 07/05/2017 SHIRLEY DEVRIES, KAROLINA L Ot Y99.8 OTHER EXTERNAL CAUSE STATUS 07/06/2017 KAROLINA WATSON MD L Ot M19.011 PRIMARY OSTEOARTHRITIS, RIGHT SHOULDER 07/06/2017 SHIRLEY DEVRIES, KAROLINA L Ot M75.101 UNSP ROTATR-CUFF TEAR/RUPTR OF RIGHT ANTIONETTE 07/06/2017 KAROLINA WATSON MD L Ot S29.9XXA UNSPECIFIED INJURY OF THORAX, INITIAL EN 07/06/2017 KAROLINA WATSON MD L Ot S59.911A UNSPECIFIED INJURY OF RIGHT FOREARM, INI 07/06/2017 KAROLINA WATSON MD Ot W19.XXXA UNSPECIFIED FALL, INITIAL ENCOUNTER 07/06/2017 SHIRLEY DEVRIES, KAROLINA Kothari Ot Y99.8 OTHER EXTERNAL CAUSE STATUS 07/06/2017 KAROLINA WATSON MD Ot M19.011 PRIMARY OSTEOARTHRITIS, RIGHT SHOULDER 07/06/2017 KAROLINA WATSON MD Ot M75.101 UNSP ROTATR-CUFF TEAR/RUPTR OF RIGHT ANTIONETTE 07/06/2017 KAROLINA WATSON MD Ot S29.9XXA UNSPECIFIED INJURY OF THORAX, INITIAL EN 07/06/2017 KAROLINA WATSON MD Ot S59.911A UNSPECIFIED INJURY OF RIGHT FOREARM, INI 07/06/2017 KAROLINA WATSON MD Ot W19.XXXA UNSPECIFIED FALL, INITIAL ENCOUNTER 07/06/2017 KAROLINA WATSON MD Ot Y99.8 OTHER EXTERNAL CAUSE STATUS 07/07/2017 CHARLES DO, SHELIA Ot E66.9 OBESITY, UNSPECIFIED 07/07/2017 CHARLES DO, SHELIA Ot E78.00 PURE HYPERCHOLESTEROLEMIA, UNSPECIFIED 07/07/2017 CHARLES DO, SHELIA Ot E86.0 DEHYDRATION 07/07/2017 CHARLES DO, SHELIA Ot E87.1 HYPO-OSMOLALITY AND HYPONATREMIA 07/07/2017 CHARLES DO, SHELIA Ot F17.21 0 NICOTINE DEPENDENCE, CIGARETTES, UNCOMPL 07/07/2017 CHARLES DO, SHELIA Ot F70 MILD INTELLECTUAL DISABILITIES 07/07/2017 CHARLES DO, SHELIA Ot K56.69 0 OTHER PARTIAL INTESTINAL OBSTRUCTION 07/07/2017 CHARLES DO, SHELIA Ot K59.09 OTHER CONSTIPATION 07/07/2017 CHARLES DO, SHELIA Ot N17.9 ACUTE KIDNEY FAILURE, UNSPECIFIED 07/07/2017 CHARLES DO SHELIA Ot Z68.26 BODY MASS INDEX (BMI) 26.0-26.9, ADULT 07/07/2017 CHARLES DO SHELIA Ot Z86.79 PERSONAL HISTORY OF OTHER DISEASES OF TH 10/11/2019 KAROLINA WATSON MD Ot 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 10/11/2019 KAROLINA WATSON MD Ot I50.9 HEART FAILURE, UNSPECIFIED 10/11/2019 KAROLINA WATSON MD Ot K59.00 CONSTIPATION, UNSPECIFIED 10/11/2019 KAROLINA WATSON MD Ot M17.11 UNILATERAL PRIMARY OSTEOARTHRITIS, RIGHT 10/11/2019 KAROLINA WATSON MD Ot N32.89 OTHER SPECIFIED DISORDERS OF BLADDER 10/11/2019 KAROLINA WATSON MD Ot R33.9 RETENTION OF URINE, UNSPECIFIED 10/11/2019 KAROLINA WATSON MD Ot R63.4 ABNORMAL WEIGHT LOSS 10/11/2019 KAROLINA WATSON MD L Ot R91.1 SOLITARY PULMONARY NODULE 10/14/2019 KAROLINA WATSON MD Ot M19.011 PRIMARY OSTEOARTHRITIS, RIGHT SHOULDER 10/14/2019 KAROLINA WATSON MD Ot M75.101 UNSP ROTATR-CUFF TEAR/RUPTR OF RIGHT ANTIONETTE 10/14/2019 KAROLINA WATSON MD Ot S29.9XXA UNSPECIFIED INJURY OF THORAX, INITIAL EN 10/14/2019 KAROLINA WATSON MD Ot S59.911A UNSPECIFIED INJURY OF RIGHT FOREARM, INI 10/14/2019 KAROLINA WATSON MD Ot W19.XXXA UNSPECIFIED FALL, INITIAL ENCOUNTER 10/14/2019 KAROLINA WATSON MD L Ot Y99.8 OTHER EXTERNAL CAUSE STATUS 10/14/2019 KAROLINA WATSON MD Ot 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 10/14/2019 KAROLINA WATSON MD Ot I50.9 HEART FAILURE, UNSPECIFIED 10/14/2019 KAROLINA WATSON MD Ot K59.00 CONSTIPATION, UNSPECIFIED 10/14/2019 KAROLINA WATSON MD Ot M17.11 UNILATERAL PRIMARY OSTEOARTHRITIS, RIGHT 10/14/2019 KAROLINA WATSON MD Ot N32.89 OTHER SPECIFIED DISORDERS OF BLADDER 10/14/2019 KAROLINA WATSON MD L Ot R33.9 RETENTION OF URINE, UNSPECIFIED 10/14/2019 KAROLINA WATSON MD L Ot R63.4 ABNORMAL WEIGHT LOSS 10/14/2019 KAROLINA WATSON MD Ot R91.1 SOLITARY PULMONARY NODULE 10/24/2019 KAROLINA WATSON MD Ot M19.011 PRIMARY OSTEOARTHRITIS, RIGHT SHOULDER 10/24/2019 KAROLINA WATSON MD Ot M75.101 UNSP ROTATR-CUFF TEAR/RUPTR OF RIGHT ANTIONETTE 10/24/2019 KAROLINA WATSON MD L Ot S29.9XXA UNSPECIFIED INJURY OF THORAX, INITIAL EN 10/24/2019 SHIRLEY DEVRIES, KAROLINA L Ot S59.911A UNSPECIFIED INJURY OF RIGHT FOREARM, INI 10/24/2019 SHIRLEY DEVRIES, KAROLINA L Ot W19.XXXA UNSPECIFIED FALL, INITIAL ENCOUNTER 10/24/2019 SHIRLEY DEVRIES, KAROLINA L Ot Y99.8 OTHER EXTERNAL CAUSE STATUS 10/24/2019 KAROLINA WATSON MD L Ot 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 10/24/2019 KAROLINA WATSON MD L Ot I50.9 HEART FAILURE, UNSPECIFIED 10/24/2019 KAROLINA WATSON MD L Ot K59.00 CONSTIPATION, UNSPECIFIED 10/24/2019 KAROLINA WATSON MD L Ot M17.11 UNILATERAL PRIMARY OSTEOARTHRITIS, RIGHT 10/24/2019 KAROLINA WATSON MD L Ot N32.89 OTHER SPECIFIED DISORDERS OF BLADDER 10/24/2019 KAROLINA WATSON MD L Ot R33.9 RETENTION OF URINE, UNSPECIFIED 10/24/2019 KAROLINA WATSON MD L Ot R63.4 ABNORMAL WEIGHT LOSS 10/24/2019 KAROLINA WATSON MD L Ot R91.1 SOLITARY PULMONARY NODULE 10/30/2019 KAROLINA WATSON MD L Ot M19.011 PRIMARY OSTEOARTHRITIS, RIGHT SHOULDER 10/30/2019 KAROLINA WATSON MD L Ot M75.101 UNSP ROTATR-CUFF TEAR/RUPTR OF RIGHT ANTIONETTE 10/30/2019 KAROLINA WATSON MD L Ot S29.9XXA UNSPECIFIED INJURY OF THORAX, INITIAL EN 10/30/2019 KAROLINA WATSON MD L Ot S59.911A UNSPECIFIED INJURY OF RIGHT FOREARM, INI 10/30/2019 KAROLINA WATSON MD L Ot W19.XXXA UNSPECIFIED FALL, INITIAL ENCOUNTER 10/30/2019 KAROLINA WATSON MD L Ot Y99.8 OTHER EXTERNAL CAUSE STATUS 10/30/2019 KAROLINA WATSON MD L Ot 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 10/30/2019 KAROLINA WATSON MD L Ot I50.9 HEART FAILURE, UNSPECIFIED 10/30/2019 KAROLINA WATSON MD L Ot K59.00 CONSTIPATION, UNSPECIFIED 10/30/2019 KAROLINA WATSON MD L Ot M17.11 UNILATERAL PRIMARY OSTEOARTHRITIS, RIGHT 10/30/2019 KAROLINA WATSON MD L Ot N32.89 OTHER SPECIFIED DISORDERS OF BLADDER 10/30/2019 KAROLINA WATSON MD Ot R33.9 RETENTION OF URINE, UNSPECIFIED 10/30/2019 KAROLINA WATSON MD Ot R63.4 ABNORMAL WEIGHT LOSS 10/30/2019 KAROLINA WATSON MD Ot R91.1 SOLITARY PULMONARY NODULE 10/30/2019 KAROLINA WATSON MD Ot M19.011 PRIMARY OSTEOARTHRITIS, RIGHT SHOULDER 10/30/2019 KAROLINA WATSON MD Ot M75.101 UNSP ROTATR-CUFF TEAR/RUPTR OF RIGHT ANTIONETTE 10/30/2019 KAROLINA WATSON MD Ot S29.9XXA UNSPECIFIED INJURY OF THORAX, INITIAL EN 10/30/2019 KAROLINA WATSON MD Ot S59.911A UNSPECIFIED INJURY OF RIGHT FOREARM, INI 10/30/2019 KAROLINA WATSON MD Ot W19.XXXA UNSPECIFIED FALL, INITIAL ENCOUNTER 10/30/2019 KAROLINA WATSON MD Ot Y99.8 OTHER EXTERNAL CAUSE STATUS 10/30/2019 KAROLINA WATSON MD Ot 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 10/30/2019 KAROLINA WATSON MD Ot I50.9 HEART FAILURE, UNSPECIFIED 10/30/2019 KAROLINA WATSON MD Ot K59.00 CONSTIPATION, UNSPECIFIED 10/30/2019 KAROLINA WATSON MD Ot M17.11 UNILATERAL PRIMARY OSTEOARTHRITIS, RIGHT 10/30/2019 KAROLINA WATSON MD Ot N32.89 OTHER SPECIFIED DISORDERS OF BLADDER 10/30/2019 KAROLINA WATSON MD Ot R33.9 RETENTION OF URINE, UNSPECIFIED 10/30/2019 KAROLINA WATSON MD L Ot R63.4 ABNORMAL WEIGHT LOSS 10/30/2019 KAROLINA WATSON MD Ot R91.1 SOLITARY PULMONARY NODULE Procedures Code Description Performed By Per formed On [id number] DR KEANE OF STOMACH WITH DRAINAGE DEVICE 07/05/2017 Results Test Result Range CBC with Auto Diff - 07/05/17 11:46 Baso% 0.10 % 0.00-2.50 Eos 0.0 K/uL 0.0-0.7 Eos% 0.1 % 0.0-7.0 Hct 51.1 % 42.0-52.0 Hgb 18.2 Results Repeated w/ New Sample g/d L 14.0-17.0 Lym 1.09 K/uL 0.60-3.40 Lym% 5.6 % 10.0-50.0 MCH 30.6 pg 27.0-31.2 MCHC 35.6 g/dL 32.0-36.0 MCV 86.0 fL 80.0-97.0 Guadalupe% 11.2 % 0.0-12.0 MPV 11.9 fL 7.4-10.0 Serina% 83.0 % 37.0-80.0 Plt 205 K/uL 150-400 RBC 5.94 M/uL 4.20-5.40 RDW 14.2 % 11.6-14.8 WBC 19.63 K/uL 5.00-10.00 Serina 16.33 K/uL 2.00-6.90 Guadalupe 2.2 K/uL 0.0-0.9 Baso 0.0 K/uL 0.0-0.2 Methicillin resistant Staphylococcus aur eus (MRSA) screening culture - 07/05/17 17:42 Methicillin resistant Staphylococcus aureus (MRSA) scr eening culture NEG NRG Complete blood count (CBC) with automate d white blood cell (WBC) differential - 07/06/17 04:05 Blood leukocytes automated count (number/volume) 6.1 10*3/uL 4.3-11.0 Blood erythrocytes automated count (number/volume) 5.06 10*6/uL 4.35-5.85 Venous blood hemoglobin measurement (mass/volume) 15.4 g/dL 13.3-17.7 Blood hematocrit (volume fraction) 44 % 40-54 Automated erythrocyte mean corpuscular volume 88 [ foz_us] 80-99 Automated erythrocyte mean corpuscular h emoglobin (mass per erythrocyte) 30 pg 25-34 Automated erythrocyte mean corpuscular h emoglobin concentration measurement (mass/volume) 35 g/dL 32-36 Automated erythrocyte distribution width ratio 14. 6 % 10.0- 14.5 Automated blood platelet count (count/volume) 156 10*3/uL 130-400 Automated blood platelet mean volume measurement 11.9 [foz_us] 7.4-10.4 Automated blood neutrophils/100 leukocytes 66 % 42-75 Automated blood lymphocytes/100 leukocytes 16 % 12-44 Blood monocytes/100 leukocytes 17 % 0-12 Automated blood eosinophils/100 leukocytes 0 % 0-10 Automated blood basophils/100 leukocytes 0 % 0-10 Blood neutrophils automated count (number/volume) 4.0 10*3 1.8-7.8 Blood lymphocytes automated count (number/volume) 1.0 10*3 1.0-4.0 Blood monocytes automated count (number/volume) 1. 1 10*3 0.0-1.0 Automated eosinophil count 0.0 10*3/uL 0 .0-0.3 Automated blood basophil count (count/volume) 0.0 10*3/uL 0.0-0.1 Comprehensive metabolic panel - 07/06/17 04:05 Serum or plasma sodium measurement (moles/volume) 137 mmol/L 135-145 Serum or plasma potassium measurement (moles/volume) 4.0 mmol/L 3.6-5.0 Serum or plasma chloride measurement (moles/volume) 100 mmol/L 98-107 Carbon dioxide 27 mmol/L 21-32 Serum or plasma anion gap determination (moles/volume) 10 mmol/L 5-14 Serum or plasma urea nitrogen measurement (mass/volume ) 33 mg/dL 7-18 Serum or plasma creatinine measurement (mass/volume) 0.94 mg/dL 0.60-1.30 Serum or plasma urea nitrogen/creatinine mass ratio 35 NRG Serum or plasma creatinine measurement w ith calculation of estimated glomerular filtration rate > NRG Serum or plasma glucose measurement (mass/volume) 87 mg/dL 70-105 Serum or plasma calcium measurement (mass/volume) 8.4 mg/dL 8.5-10.1 Serum or plasma total bilirubin measurement (mass/volu me) 0.7 mg/dL 0.1-1.0 Serum or plasma alkaline phosphatase tosin surement (enzymatic activity/volume) 42 U/L 40-136 Serum or plasma aspartate aminotransfera se measurement (enzymatic activity/volume) 20 U/L 5-34 Serum or plasma alanine aminotransferase measurement (enzymatic activity/volume) 22 U/L 0-55 Serum or plasma protein measurement (mass/volume) 6.4 g/dL 6.4-8.2 Serum or plasma albumin measurement (mass/volume) 4.0 g/dL 3.2-4.5 Serum or plasma phosphate measurement (m ass/volume) - 07/06/17 04:05 Serum or plasma phosphate measurement (mass/volume) 3.4 mg/dL 2.3-4.7 Magnesium - 07/06/17 04:05 Magnesium 2.4 mg/dL 1.8-2.4 [id number] - 10/09/19 12:26 Serum or plasma urea nitrogen measurement (mass/volume ) 21 mg/dL -18 Serum or plasma creatinine measurement (mass/volume) 0.60 mg/dL 0.60-1.30 Serum or plasma urea nitrogen/creatinine mass ratio 35 NRG Serum or plasma creatinine measurement w ith calculation of estimated glomerular filtration rate > NRG Coronavirus SARS-CoV-2 SO 2019 - 0 08:49 Coronavirus Ab [Units/volume] in Serum NOT DETECTE D Not Detecte Encounters ACCT No. Visit Date/Time Discharge Status Pt. Type Provider Facility Loc./Unit Complaint [id number] 07/05/2017 11:14:00 Document Registration [id number] 10/28/2019 05:33:00 020 10:31:00 DIS Outpatient SHAWNA NICHOLE MD [facility] PREOP WEIGHT LOSS [id number] 10/10/2019 09:15:00 020 23:59:59 CLS Preadmit KAROLINA WATSON MD [facility] RAD RT KNEE PAIN SWELLING,5 0 LB WEIGHT LOSS [id number] 10/09/2019 11:55:00 020 23:59:59 CLS Outpatient KAROLINA WATSON MD [facility] RAD RIGHT KNEE PAIN, WEIGH T LOSS [id number] 07/05/2017 16:25:00 018 14:46:00 DIS Inpatient MELVIN PERRY, SHELIA V ia [facility] 4TH BOWEL OBSTRUCTION,ARF [id number] 10/28/2016 09:49:00 017 23:59:59 CLS Outpatient KAROLINA WATSON MD [facility] RAD R SHOULDER PAIN [id number] 10/30/2019 10:30:[address] Outpatient SHAWNA NICHOLE MD [facility] [place] ENDO WEIGHT LOSS [id number] 10/24/2011 22:33:00 Document Registration
[2019-10-30] MEDS ORDERED: NS IV 500 ML 500 ML ONE ×2 (10:48→12:39)
--- NOTE | 2019-10-30 10:48 | Conscious Sedation/ASA ---
Conscious Sedation Pre-Proced Time 10:40 ASA Score 2 For ASA 3 and 4: Consider anesthesia and medical clearance. Also, for patients with a history of failed moderate sedation consider anesthesia. Airway Lungs Heart ASA score ASA 1: a normal healthy patient ASA 2: a patient with a mild systemic disease (mid diabetes, controlled hypertension, obesity ASA 3: a patient with a severe systemic disease that limits activity (angina, COPD, prior Myocardial infarction) ASA 4: a patient with an incapacitating disease that is a constant threat to life (CHF, renal failure) ASA 5: a moribund patient not expected to survive 24 hrs. (ruptured aneurysm) ASA 6: a declared brain- patient whose organs are being harvested. For emergent operations, add the letter E after the classification Mallampati Classification Grade 2 Sedation Plan Analgesia, Amnesia, Plan communicated to team members, Discussed options with patient/fam, Discussed risks with patient/fam The patient is an appropriate candidate to undergo the planned procedure, sedation, and anesthesia. The patient immediately re-assessed prior to indication. SHAWNA NICHOLE MD Oct 30, 2019 10:48
--- NOTE | 2019-10-30 10:49 | Progress Note-Pre Operative ---
Pre-Operative Progress Note H&P Reviewed The H&P was reviewed, patient examined and no changes noted. Date Seen by Provider: Oct 30, 2019 Time Seen by Provider: 10:40 Date H&P Reviewed: Oct 30, 2019 Time H&P Reviewed: 10:40 Pre-Operative Diagnosis: weight loss SHAWNA NICHOLE MD Oct 30, 2019 10:49
--- NOTE | 2019-10-30 10:51 | Discharge Inst-Surgical ---
D/C Lap Instructions-DIONISIO Follow Up Activity as tolerated High Fiber Diet 25g or more per day Avoid Alcohol, Caffeine, Spicy [place] and Acid foods. Drink 64 fluid oz or more of fluids per day. Symptoms to Report: Fever over 101 degree F, Nausea/Vomiting If any problems/questions: Contact your physician or go to Emergency Room SHAWNA NICHOLE MD Oct 30, 2019 10:51
[2019-10-30] MEDS ORDERED: ONDANSETRON 4 MG/2 ML (SDV) Z0FRAN IVP PRN (11:00)
[2019-10-30] MEDS ORDERED: LIDOCAINE JELLY 2% 6 ML SYRINGE MM PRN (11:00)
[2019-10-30] MEDS ORDERED: HURRICAINE EXT TUBE (BENZOCAINE) XX PRN (11:00)
[2019-10-30] MEDS ORDERED: ACETAMINOPHEN 325 MG TABLET PO PRN (11:00)
[2019-10-30] MEDS: NS IV 500 ML 500 ML IV PRN ×3 (11:00→12:40)
[2019-10-30] MEDS ORDERED: fentaNYL INJECTION 100 MCG/2 ML AMP IVP ONE (11:00)
[2019-10-30] MEDS ORDERED: morphine INJ 10 MG/ML 1ML (SYR OR VIAL) IVP PRN ×2 (11:00)
[2019-10-30] MEDS ORDERED: HYDROcodone/APAP 5 MG/325 MG (LORTAB) TAB PO PRN (11:00)
[2019-10-30] MEDS ORDERED: CYCL10TA9 PO (11:18)
[2019-10-30] MEDS ORDERED: SIMV10TA PO (11:18)
[2019-10-30] MEDS ORDERED: LORA-714 PO (11:18)
[2019-10-30] MEDS ORDERED: DOCU-143 PO (11:18)
[2019-10-30] MEDS ORDERED: SIMV20TA26 PO (11:18)
[2019-10-30] MEDS ORDERED: LIDOCAINE JELLY 2% 6 ML SYRINGE ONE (11:45)
[2019-10-30] MEDS ORDERED: fentaNYL INJECTION 100 MCG/2 ML AMP ONE ×2 (11:45→12:11)
[2019-10-30] MEDS ORDERED: MIDAZOLAM 5 MG/5 ML (VERSED) VIAL ONE ×2 (11:46→12:11)
[2019-10-30] MEDS: MIDAZOLAM 5 MG/5 ML (VERSED) VIAL IV PRN ×5 (11:48→12:39)
--- NOTE | 2019-10-30 13:01 | Progress Note-Post Operative ---
Post-Operative Progess Note Surgeon (s)/Field Test Engineer (s) Surgeon SHAWNA NICHOLE MD Field Test Engineer: none Pre-Operative Diagnosis weight loss Post-Operative Diagnosis reflux esophagitis(stage 2), small HH(2cm), severe plyoric gastritis. mild chronic stage 2 ext and int hemorrhoids. Procedure & Operative Findings Date of Procedure 10/30/19 Procedure Performed/Findings EGD with bx. Colonoscopy. Anesthesia Type cs Estimated Blood Loss Estimated blood loss (mL): minimal Specimens/Packing Specimens Removed ge jxn, pylorus SHAWNA NICHOLE MD Oct 30, 2019 13:01
--- NOTE | 2019-10-30 21:59 | OPERATIVE REPORT ---
DATE OF SERVICE: 10/30/2019 ATTENDING PRIMARY CARE PHYSICIAN: Dottie Ascencio MD PREOPERATIVE DIAGNOSIS: Weight loss. POSTOPERATIVE DIAGNOSES: Reflux esophagitis stage II, moderate to severe gastritis towards the pylorus, which may be due to NSAID use, however, may also be related to diet and lifestyle. No distal obstructions. Chronic stage II external and internal hemorrhoids. There was a poor prep; however, what was visualized of the colon and rectum appeared normal. PROCEDURE: EGD with biopsy, colonoscopy. SURGEON: Shawna Nichole MD ANESTHESIA: Conscious sedation. ESTIMATED BLOOD LOSS: Minimal. FINDINGS: Same as postoperative diagnoses. DISPOSITION: The patient tolerated the procedure well. INDICATIONS: The patient is a 74-year-old male with some level of developmental delay and a resident of [facility]. He has lost a significant amount of weight in the past 6 months. They do not report any nausea or vomiting as well as no reflux. They do report that he sometimes does have some episodes of diarrhea and constipation. No red blood per rectum nor any dark tarry stools. DESCRIPTION OF PROCEDURE: The patient was brought to the endoscopy suite, laid in the left lateral decubitus position. After adequate IV pain and sedative medications and conscious sedation anesthesia, the mouthpiece was applied. The endoscope was placed in the mouth, visualizing the pharynx and hypopharyngeal region. Vocal cords, epiglottis and vallecula identified and appeared to be normal. The endoscope was then gently intubated, esophageal opening and esophagus insufflated. The endoscope was then advanced through the first, second and third portion of the esophagus at the level of the GE junction, reflux esophagitis stage II identified. There were no ulcers or strictures identified in this region. A biopsy was taken with forceps with visualization of good hemostasis. Biopsy was taken of the GE junction with forceps with visualization of good hemostasis. The endoscope was then advanced into the stomach and endoscope retroflexed, visualizing a small hiatal hernia approximately 2 cm in size. There was a mild to moderate gastritis of the stomach and the antrum; however, the pylorus. There was a more severe gastritis with some mucosal erosions; however, no formal ulcerations. Biopsies were taken of the pylorus with forceps with visualization of good hemostasis. The endoscope was then advanced through the pylorus and the first and second portion of the duodenum, which appeared normal with no distal obstructions. The endoscope was slowly withdrawn while taking a second look and suctioning of residual air with no additional findings. Under the same anesthesia, we then proceeded with colonoscopy portion of procedure. Digital rectal examination was performed, which revealed mild chronic stage II external and internal hemorrhoids, not actively edematous nor inflamed and no bleeding. Normal sphincter tone was felt and there were no palpable masses. Prostate gland was palpable and appeared normal. The endoscope was then intubated to the anus and rectum gently insufflated. The endoscope was then advanced through the valves of Salomon of the rectum with no polyps or any neoplasms identified. There was a poor colonic prep; however, with irrigation and maneuvering, we were able to see the majority of the mucosa. No diverticulosis identified through the sigmoid colon. The endoscope was then advanced to the remainder of the descending, transverse and ascending colon to the cecum. These segments were normal. There were no polyps or any neoplasms identified. The endoscope was then slowly withdrawn while taking a second look and suctioning of residual air with no additional findings. The patient tolerated the procedure well. We feel that the majority of his symptoms are related to his significant gastritis and we will start him on Protonix 40 mg daily as well as the necessary lifestyle and diet accommodation including small and more frequent meals, avoidance of eating at night as well as adequate elevation while lying supine. He also needs to avoid caffeinated beverages, spicy, greasy and acidic foods as well as to decrease the meloxicam if he can tolerate it. We will also recommend a high fiber diet with at least 30 grams of fiber daily as well as significant amounts of water to promote soft stools on a daily basis. If he is asymptomatic, he does not need another colonoscopy for another 10 years. Job ID: [id number] DocumentID: [id number] Dictated Date: 10/30/2019 12:54:56 No Experience Date: 10/30/2019 21:59:02 Dictated By: SHAWNA NICHOLE MD
== END 2019-10-30 14:35 | disposition home or self-care (01) ==
LOC: ENDO 10:30
PROVIDERS: ATTEND Surgery
DX: K21.0 Gastro-esophageal reflux disease with esophagitis (principal); K29.50 Unspecified chronic gastritis without bleeding; K64.1 Second degree hemorrhoids; R63.4 Abnormal weight loss; Z91.018 Allergy to other foods; E78.00 Pure hypercholesterolemia, unspecified; I50.9 Heart failure, unspecified; M19.90 Unspecified osteoarthritis, unspecified site; Z79.899 Other long term (current) drug therapy
CPT/HCPCS: 88305